=== PATIENT | female | born 1945 | race Caucasian/White ===

== ENCOUNTER 2017-11-18 06:57 | Day surgery (SDC) | payer MEDICARE ==
[~2017-11-18 06:57] MED LIST: ACETAMINOPHEN 325 MG TABLET PO PRN; ACETYLCHOLINE CHLORIDE 20 DROP KIT IO PRN; BUPIVACAINE HCL/PF 30 ML VIAL IJ PRN; CYCLOPENTOLATE HCL 20 DROP BTL RIGHTEYE PRN; DEXTROSE 5%-0.5 NORMAL SALINE 1,000 ML IV PRN; EPINEPHrine 1 MG/ML AMPUL IO PRN; HYALURONATE SODIUM 0.4 ML DISP.SYRIN IO PRN; HYALURONATE SODIUM 0.85 ML DISP.SYRIN IO PRN; LIDOCAINE HCL/PF 200 MG/5 ML AMPUL TP PRN; LIDOCAINE HCL/PF 5 ML VIAL IO PRN; NORMAL SALINE 3 ML BOX IV PRN; TETRACAINE HCL 150 DROP BTL OP PRN
[2017-11-18] MEDS: TROPICAMIDE 150 DROP BTL RIGHTEYE PRN ×3 (07:10→07:39)
[2017-11-18] MEDS: PHENYLEPHRINE HCL 50 DROP BTL RIGHTEYE PRN ×3 (07:10→07:38)
[2017-11-18] MEDS ORDERED: RINGER'S SOLUTION,LACTATED 1,000 ML IV ONE (07:35)
[2017-11-18 10:07] VITALS: BP 108/58
== END 2017-11-18 06:58 | disposition home or self-care (01) ==
LOC: AMB 06:57
PROVIDERS: ATTEND Ophthalmology
PROC: 08RJ3JZ Replacement of Right Lens with Synthetic Substitute, Percutaneous Approach (ICD-10-PCS; principal; 2017-11-18)
DX: H26.8 Other specified cataract; E11.9 Type 2 diabetes mellitus without complications; E66.01 Morbid (severe) obesity due to excess calories; Z68.41 Body mass index [BMI] 40.0-44.9, adult

== ENCOUNTER 2017-12-02 06:58 | Day surgery (SDC) | payer MEDICARE ==
[~2017-12-02 06:58] MED LIST changes: +CYCLOPENTOLATE HCL 20 DROP BTL LEFTEYE PRN; -CYCLOPENTOLATE HCL 20 DROP BTL RIGHTEYE PRN
[2017-12-02] MEDS: PHENYLEPHRINE HCL 50 DROP BTL LEFTEYE PRN ×3 (07:20→07:43)
[2017-12-02] MEDS: TROPICAMIDE 150 DROP BTL LEFTEYE PRN ×3 (07:20→07:43)
[2017-12-02] MEDS ORDERED: RINGER'S SOLUTION,LACTATED 1,000 ML IV ONE (07:30)
[2017-12-02 13:57] VITALS: BP 102/63
== END 2017-12-02 06:59 | disposition home or self-care (01) ==
LOC: AMB 06:58
PROVIDERS: ATTEND Ophthalmology
PROC: 08RK3JZ Replacement of Left Lens with Synthetic Substitute, Percutaneous Approach (ICD-10-PCS; principal; 2017-12-02)
DX: H25.9 Unspecified age-related cataract (principal); E11.9 Type 2 diabetes mellitus without complications; E66.01 Morbid (severe) obesity due to excess calories; Z68.41 Body mass index [BMI] 40.0-44.9, adult

== ENCOUNTER 2020-12-12 14:35 | Observation (INO) ==
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
[2020-12-12 15:06] LABS: Hematocrit 42.6 % (37.0-47.0); Hemoglobin 13.5 gm/dL (12.5-16.0); Mean Corpuscular Hemoglobin 29.2 pg (27-31); Mean Corpuscular Hgb Conc 31.7 g/dl (32-36); Mean Platelet Volume 8.6 fl (8-12.5); Neutrophil # 3.8 K/mm3 (1.3-6.0); Neutrophil % 51.6 % (42-75.0); Platelet Count 298 K/mm3 (150-450); Red Blood Count 4.63 M/mm3 (4.2-5.4); Red Cell Distribution Width 13.5 % (11.5-14.0); White Blood Count 7.4 K/mm3 (4.0-10.5)
[2020-12-12 15:27] LABS: ALT 28 U/L (19-67); AST 24 U/L (0-48); Albumin * 2.9 gm/dl (3.4-5.0); Alkaline Phosphatase * 168 U/L (50-170); Anion Gap 9.7 mmol/L (6.8-13.8); BNP * 226 pg/mL (5-325); Bilirubin, Total 0.4 mg/dL (0.0-1.1); Blood Urea Nitrogen 15 mg/dL (3-23); CK Total * 86 U/L (0-259); CRP 6.9 mg/dL (0.0-0.9); Ca. Corrected For Albumin 9.4 mg/dL (8.4-10.2); Calcium * 8.8 mg/dL (7.9-10.9); Carbon Dioxide 27.8 mmol/L (24-32.6); Chloride 102 mmol/L (97-106); Glucose * 81 mg/dL (70-110); Potassium 4.5 mmol/L (3.4-4.6); Sodium 135 mmol/L (132-142); Total Protein 7.4 gm/dL (6.2-8.2); Troponin I Less than 0.017 ng/mL (0.00-0.10)
[2020-12-12] MEDS ORDERED: DEXAMETHASONE 4 MG TABLET PO ONE (16:51)
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
[2020-12-12] MEDS: INSULIN LISPRO 100 UNITS/ML VIAL SC SCH (20:46)
[2020-12-12] MEDS ORDERED: SIMVASTATIN 40 MG TABLET PO SCH (21:00)
[2020-12-12] MEDS ORDERED: ENOXAPARIN SODIUM 40 MG/0.4 ML SYRG SC SCH (21:00)
[2020-12-13] MEDS ORDERED: LEVOTHYROXINE SODIUM 75 MCG TABLET PO SCH (07:00)
[2020-12-13] MEDS: INSULIN LISPRO 100 UNITS/ML VIAL SC SCH (07:34)
[2020-12-13] MEDS ORDERED: FLUoxetine HCL 20 MG CAPSULE PO SCH (09:00)
[2020-12-13] MEDS ORDERED: FAMOTIDINE 20 MG TABLET PO SCH (09:00)
[2020-12-13] MEDS ORDERED: INSULIN GLARGINE,HUM.REC.ANLOG 100 UNITS/ML VIAL SC SCH (09:00)
[2020-12-13] MEDS ORDERED: glipiZIDE 5 MG TAB.SR.24H PO SCH (09:00)
[2020-12-13] MEDS ORDERED: LISINOPRIL 10 MG TABLET PO SCH (09:00)
--- NOTE | 2020-12-13 10:04 | DS ---
(1) Pneumonia due to COVID-19 virus Problem: Acute (2) Hypoxia Problem: Acute (3) HTN (hypertension) Problem: Chronic Qualifiers: Hypertension type: essential hypertension (4) Hypothyroid Problem: Chronic Qualifiers: Hypothyroidism type: acquired (5) Anxiety and depression Problem: Chronic (6) Obesity Problem: Chronic Qualifiers: (7) CKD (chronic kidney disease) stage 4, GFR 15-29 ml/min Problem: Chronic (8) Hyperlipidemia Problem: Chronic Qualifiers: Hyperlipidemia type: unspecified Qualified Code(s): E78.5 - Hyperlipidemia, unspecified (9) Diabetes mellitus, type II Problem: Chronic Qualifiers: Diabetes mellitus fdc insulin use: with intensive care specialist use (10) Arthritis Problem: Chronic Hospital Course: 75-year-old female with a past medical history of arthritis, diabetes mellitus type 2, hypertension, hyperlipidemia presents with chest pain. She states she was diagnosed with Covid on December 08, 2020. Her symptoms began 10 days ago. She presented to the ER because she wanted to have a chest x-ray. In the ER she was found to be hypoxic and was started on oxygen supplementation via nasal cannula. Chest x-ray showed scattered small parenchymal infiltrates. She was admitted for Covid pneumonia. She has not required oxygen supplementation since admission. She is feeling better today. She denies chest pain. She is tolerating her diet. She will be discharged home today and will follow up with me in the office within the next 1 to 2 weeks. Procedures Performed: none Results and Findings: Lab Pending Results 12/12/20 14:59: Procalcitonin 0.05 12/12/20 14:59: WBC 7.4, RBC 4.63, Hgb 13.5, Hct 42.6, MCV 92.0, MCH 29.2, MCHC 31.7 L, RDW 13.5, Plt Count 298, MPV 8.6, Immature Gran % (Auto) 1.00 H, Immature Gran # (Auto) 0.07 H, Neutrophils % 51.6, Lymphocytes % 35.9, Monocytes % 9.3 H, Eosinophils % 1.9, Basophils % 0.3, Nucleated RBC % 0.0, Neutrophils # 3.8, Lymphocytes # 2.64, Monocytes # 0.7, Eosinophils # 0.1, Absolute Basophils 0.0 12/12/20 14:59: Sodium 135, Plasma Sodium 135, Potassium 4.5, Chloride 102, Carb on Dioxide 27.8, Anion Gap 9.7, BUN 15 D, Creatinine 1.25, Est GFR (Non-Af Amer) 45 L D, BUN/Creatinine Ratio 12.0, Random Glucose 81, Calcium 8.8, Calcium Adj for Albumin 9.4, Total Bilirubin 0.4, AST 24, ALT 28, Alkaline Phosphatase 168, Creatine Kinase 86, Troponin I Less than 0.017, C-Reactive Prot, Quant 6.9 H, B-Natriuretic Peptide 226, Total Protein 7.4, Albumin 2.9 L 12/12/20 14:59: D-Dimer 0.90 H Discharge Location: Home Disposition: Home self-care Condition: Stable Discharge Activity: Activity as tolerated Discharge Diet: General/regular food Problem Oriented Discharge Instructions to Patient/Family: COVID-19 Additional Patient Instructions (free text): Telehealth video appointment with Dr. Chiu on December 21 at 11:15 AM. Complete Home Medications List: Complete Home Medication List: Blood-Glucose Meter [Blood Glucose Monitoring] 1 ea MC DAILY 11/15/17 fluoxetine 20 mg capsule 20 mg PO DAILY #90 cap 03/31/20 glipizide 10 mg tablet, extended release 24 hr 10 mg PO DAILY #90 tab 03/31/20 levothyroxine 75 mcg tablet 75 mcg PO DAILY #90 tab 03/31/20 lisinopril 10 mg tablet 10 mg PO DAILY #90 tab 03/31/20 triamcinolone acetonide 0.1 % topical cream 1 applic TP DAILY #30 g 06/09/20 simvastatin 40 mg tablet 40 mg PO HS #1 tab 09/09/20 insulin degludec 100 unit/mL (3 mL) subcutaneous pen 18 unit SUBCUT DAILY ml 09/19/20 pen needle, diabetic 31 gauge x 3/16" 1 ea MISCELLANEOUS DAILY #100 ea 12/12/20 prednisoLONE ACETATE [Pred Forte 1%] 1 drp OP QID 12/12/20
[2020-12-13 11:35] VITALS: BP 129/74
== END 2020-12-13 11:30 | disposition home health service (06) ==
LOC: ER 14:35 → INTOOBSV 17:06 → SCU 17:06
PROVIDERS: ADMIT Family Medicine; ATTEND Internal Medicine